=== PATIENT | male | born 1965 | race Two or more races ===

== ENCOUNTER 2020-07-03 10:09 | Inpatient (IN) | payer OTHER ==
[~2020-07-03] VITALS: Ht 175.3 cm; Wt 77.7 kg
--- NOTE | 2020-07-03 10:37 | NUR ---
interpertation done at bed side by tristan fernandez. states pain in lower abd,
[2020-07-03 10:57] LABS: BASOPHILS % (AUTO) 1 % (0-1); EOSINOPHILS % (AUTO) 1 % (1-7); LYMPHOCYTES % (AUTO) 8 % (22-44); MD NO; MEAN CORPUSCULAR HEMOGLOBIN 31.6 pg (27.5-34.5); MEAN CORPUSCULAR HGB CONC 34.6 g/dL (33.2-36.2); MEAN PLATELET VOLUME 8.5 fL (7.4-10.4); MONOCYTES % (AUTO) 8 % (2-9); NEUTROPHILS % (AUTO) 82 % (42-75); PLATELET COUNT 252 x10^3/uL (130-400); RED CELL DISTRIBUTION WIDTH 12.6 % (9.4-14.8)
[2020-07-03] MEDS ORDERED: MAGNESIUM CITRATE 300ML ORAL SOL ONE (10:57)
[2020-07-03] MEDS ORDERED: MAGNESIUM CITRATE 300ML ORAL SOL PO ONE (11:00)
[2020-07-03] MEDS ORDERED: SODIUM CHLORIDE FLUSH 10ML SYR IVF ONE ×2 (11:00→11:30)
[2020-07-03 11:07] LABS: ALANINE AMINOTRANSFERASE 52 U/L (12-78); ALBUMIN 3.6 g/dL (3.4-5.0); ANION GAP 5 mmol/L (5-15); CALCIUM 8.5 mg/dL (8.5-10.1); CHLORIDE 106 mmol/L (98-107); CREATININE 1.02 mg/dL (0.7-1.3)
[2020-07-03 11:09] LABS: ALKALINE PHOSPHATASE 72 U/L (45-117); BILIRUBIN,TOTAL 0.7 mg/dL (0.2-1.0); TOTAL PROTEIN 7.3 g/dL (6.4-8.2)
--- NOTE | 2020-07-03 11:09 | NUR ---
PT IN BED, VSS,
[2020-07-03 11:29] LABS: MICROSCOPIC NOT IND
[2020-07-03] MEDS ORDERED: ONDANSETRON 2MG/ML, 2ML ONE (11:30)
[2020-07-03] MEDS ORDERED: MORPHINE SULFATE 4 MG/ML, 1ML ONE ×2 (11:30→14:09)
[2020-07-03] MEDS ORDERED: MORPHINE SULFATE 4 MG/ML, 1ML IVPush PRN (11:30)
[2020-07-03] MEDS ORDERED: ONDANSETRON 2MG/ML, 2ML IVPush ONE (11:30)
--- NOTE | 2020-07-03 11:34 | NUR ---
ADMIN PAIN AND N./V MEDS
[2020-07-03] MEDS ORDERED: OMNIPAQUE 350 MG/ML, 100ML BOTTLE ONE (12:23)
--- NOTE | 2020-07-03 12:48 | NUR ---
admit pt, vss,
[2020-07-03] MEDS ORDERED: CEFTRIAXONE PMX 1GM/50ML 50 ML ONE (12:57)
[2020-07-03] MEDS ORDERED: SODIUM CHLORIDE 0.9% 1,000ML IVBOLUS ONE (13:00)
[2020-07-03] MEDS ORDERED: METRONIDAZOLE PMX 500MG/100ML 100 ML IV ONE (13:00)
[2020-07-03] MEDS ORDERED: CEFTRIAXONE PMX 1GM/50ML 50 ML IV ONE (13:00)
[2020-07-03] MEDS ORDERED: METRONIDAZOLE PMX 500MG/100ML 100 ML ONE (13:13)
[2020-07-03] MEDS: ENOXAPARIN 40 MG/0.4 ML SQ SCH (13:30)
[2020-07-03] MEDS ORDERED: KETOROLAC 30 MG/1 ML IV PRN (13:30)
[2020-07-03] MEDS ORDERED: TRAZODONE 50MG TABLET PO PRN (13:30)
[2020-07-03] MEDS ORDERED: ONDANSETRON ODT 4 MG PO PRN (13:30)
[2020-07-03] MEDS ORDERED: METHYLNALTREXONE 12 MG/0.6 ML SYR SQ SCH (14:00)
[2020-07-03] MEDS ORDERED: BISACODYL 10 MG SUPP PR SCH (14:00)
[2020-07-03] MEDS ORDERED: ENOXAPARIN 40 MG/0.4 ML ONE (14:09)
[2020-07-03 14:20] VITALS: BP 168/95
[2020-07-03] MEDS: OXYcodone IR 5MG TABLET PO PRN ×3 (14:39→20:37)
[2020-07-03 15:26] LABS: HCT (SEDRATE) 46.6 % (39.2-51.8)
[2020-07-03 18:39] VITALS: BP 122/79
[2020-07-03] MEDS: ACETAMINOPHEN 325 MG TABLET PO PRN (20:37)
[2020-07-03] MEDS: POLYETHYLENE GLYCOL 17 GM PACKET PO SCH (20:37)
[2020-07-03] MEDS: PIPERACILLIN/TAZO/PMX 4.5GM 100 ML IV SCH (22:01)
[2020-07-04 00:37] VITALS: BP 123/68
[2020-07-04] MEDS: OXYcodone IR 5MG TABLET PO PRN ×2 (05:38→19:38)
[2020-07-04] MEDS: ACETAMINOPHEN 325 MG TABLET PO PRN ×2 (05:38→19:38)
[2020-07-04] MEDS: PIPERACILLIN/TAZO/PMX 4.5GM 100 ML IV SCH ×4 (05:39→23:52)
[2020-07-04 06:50] VITALS: BP 110/64
[2020-07-04] MEDS: SENNA/DOCUSATE TABLET PO SCH (07:48)
[2020-07-04] MEDS: POLYETHYLENE GLYCOL 17 GM PACKET PO SCH (07:48)
[2020-07-04] MEDS: ENOXAPARIN 40 MG/0.4 ML SQ SCH (12:04)
[2020-07-04 12:20] VITALS: BP 126/78
[2020-07-04] MEDS ORDERED: GOLYTELY 4,000ML ORAL.SOL PO ONE (17:30)
[2020-07-04 19:14] VITALS: BP 124/72
[2020-07-05 01:02] VITALS: BP 137/75
[2020-07-05] MEDS: PIPERACILLIN/TAZO/PMX 4.5GM 100 ML IV SCH ×4 (06:29→23:59)
[2020-07-05] MEDS: SENNA/DOCUSATE TABLET PO SCH (07:40)
[2020-07-05 09:52] VITALS: BP 120/31
[2020-07-05] MEDS: OXYcodone IR 5MG TABLET PO PRN (09:56)
[2020-07-05] MEDS: ACETAMINOPHEN 325 MG TABLET PO PRN (09:56)
[2020-07-05] MEDS: ENOXAPARIN 40 MG/0.4 ML SQ SCH (12:05)
[2020-07-05 12:20] VITALS: BP 109/62
[2020-07-05 18:57] VITALS: BP 104/62
[2020-07-06 00:08] VITALS: BP 131/85
[2020-07-06 04:07] VITALS: BP 113/68
[2020-07-06 05:58] LABS: BASOPHILS % (AUTO) 1 % (0-1); EOSINOPHILS % (AUTO) 3 % (1-7); LYMPHOCYTES % (AUTO) 19 % (22-44); MEAN CORPUSCULAR HEMOGLOBIN 31.5 pg (27.5-34.5); MEAN PLATELET VOLUME 8.7 fL (7.4-10.4); MONOCYTES % (AUTO) 8 % (2-9); NEUTROPHILS % (AUTO) 70 % (42-75); PLATELET COUNT 273 x10^3/uL (130-400); RED BLOOD COUNT 4.51 x10^6/uL (4.38-5.82); RED CELL DISTRIBUTION WIDTH 12.5 % (9.4-14.8)
[2020-07-06 06:02] LABS: HCT (SEDRATE) 42.2 % (39.2-51.8)
[2020-07-06] MEDS: PIPERACILLIN/TAZO/PMX 4.5GM 100 ML IV SCH ×2 (06:06→12:16)
[2020-07-06 06:09] LABS: ALANINE AMINOTRANSFERASE 34 U/L (12-78); ALBUMIN 3.2 g/dL (3.4-5.0); ANION GAP 5 mmol/L (5-15); CALCIUM 8.9 mg/dL (8.5-10.1); CHLORIDE 111 mmol/L (98-107); CREATININE 1.14 mg/dL (0.7-1.3)
[2020-07-06 06:11] LABS: MD NO
[2020-07-06 06:15] LABS: ALKALINE PHOSPHATASE 63 U/L (45-117); BILIRUBIN,TOTAL 0.5 mg/dL (0.2-1.0); TOTAL PROTEIN 6.9 g/dL (6.4-8.2)
[2020-07-06 07:31] VITALS: BP 127/73
[2020-07-06] MEDS: SENNA/DOCUSATE TABLET PO SCH (08:54)
[2020-07-06] MEDS ORDERED: AMOX1TAB64 PO (11:11)
[2020-07-06] MEDS ORDERED: FLU VACC QS2020-21(6MOS UP)/PF 60MCG/0.5 ML SYR IM-VACC ONE (12:00)
[2020-07-06] MEDS: ENOXAPARIN 40 MG/0.4 ML SQ SCH (13:30)
[2020-07-06] MEDS: OXYcodone IR 5MG TABLET PO PRN (14:29)
[2020-07-06 14:32] VITALS: BP 137/67
== END 2020-07-06 16:28 | disposition home or self-care (01) | DRG 379 ==
LOC: ED 12:53 → SUATTDRO 13:19 → EDIP 14:04 → 4NE 14:22
PROVIDERS: ADMIT Internal Medicine; ATTEND Internal Medicine
PROC: 0DBB8ZX Excision of Ileum, Via Natural or Artificial Opening Endoscopic, Diagnostic (ICD-10-PCS; 2020-07-05)
PROC: 0DBH8ZX Excision of Cecum, Via Natural or Artificial Opening Endoscopic, Diagnostic (ICD-10-PCS; principal; 2020-07-05 08:00)
DX: K92.1 Melena (principal); K52.9 Noninfective gastroenteritis and colitis, unspecified; D72.829 Elevated white blood cell count, unspecified; K57.90 Diverticulosis of intestine, part unspecified, without perforation or abscess without bleeding; Z20.822 Contact with and (suspected) exposure to COVID-19; K63.9 Disease of intestine, unspecified; Z79.82 Long term (current) use of aspirin; Z87.891 Personal history of nicotine dependence; Z72.89 Other problems related to lifestyle; Z23 Encounter for immunization
CPT/HCPCS: 36415; 74021; 74177; 80053; 81003; 82378; 83036; 83605; 85025; 85651; 86140; 87040; 87046; 87635; 88305; 90686; 96374; 96375; 99285; G0378; J0696; J1885; J2405; J2543; Q9967; J2270; J7030